=== PATIENT | female | born 1980 | race Caucasian/White ===

== ENCOUNTER → 2017-04-05 | Outpatient (CLI) | payer OTHER | END | disposition home or self-care (01) | LOC: C.PAPS 09:15 | PROVIDERS: ATTEND Physician Assistant | DX: Z01.419 Encounter for gynecological examination (general) (routine) without abnormal findings (principal) ==

== ENCOUNTER 2018-09-02 21:00 | Inpatient (IN) ==
[2018-09-02] MEDS ORDERED: OXYTOCIN 30 UNITS/500 ML BAG IV PRN (21:54)
--- NOTE | 2018-09-02 22:00 | History & Physical Report ---
Date of Service September 02, 2018 Assessment & Plan (1) Supervision of elderly primigravida in third trimester: - tracing Cat I - ctx's q5' on monitor - will ambulate and see if labor progresses - discussed possible need for pitocin if labor does not develop History of Present Illness Chief Complaint: leaking fluid Primary Care Provider: Suraj Leon The patient is a 38-year-old 1 para 0 with an EDC of 06 September by dates and first trimester ultrasound who presents to labor and delivery with leaking of fluid. Patient states she felt a pop and started leaking some fluid. She subsequently developed some contractions. The patient has had a benign course. Her blood type is A+, antibody negative, rubella immune, hepatitis B negative, she had a negative cell free DNA screen, negative maternal serum AFP, she had an elevated 1 hour Glucola 28 weeks with a normal 2-hour glucose tolerance test, and a negative third trimester beta strep culture Allergies Allergy/AdvReac Type Severity Reaction Status Date / Time No Known Allergies Allergy Unverified 09/02/18 21:18 Home Medications Home Medications Medication Instructions Recorded Confirmed Type PNV cmb#95-ferrous fumarate-FA 1 tab PO DAILY 09/02/18 09/02/18 History [] inositol-D chiro inositol 1 ea PO 09/02/18 History [Ovasitol] vitamin D3-folic acid 1 tab PO DAILY 09/02/18 09/02/18 History Patient History Medical History History of migraine headaches PCOS (polycystic ovarian syndrome) Surgical History History of ankle surgery Hx of tonsillectomy Social History Preferred Language: Beninese 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 Beliefs That Will Affect Care: None marital status: Current Living Situation: Spouse Other Information That Helps Us Care for You: No Feels Safe at Home: Yes Safety Concerns: Feels Safe At This Time Smoking Status: Current every day smoker Hx Alcohol Use: No Hx Substance Use: No Physical Exam Constitutional: WD/WN, vitals as above Respiratory: Auscultation: lungs clear to auscultation bilaterally Cardiovascular: RRR, no murmur, no edema Extremities: no calf tenderness Gastrointestinal (Abdomen): Gravid, vtx, (+) FHT's, mild palpable ctx's, EFW 7 1/2 LBS Genitourinary: Cervix: SSE- (+) pool, (+)NTZ, (+) fern, 1/50/-2, posterior soft Results & Data Vital Signs (Past 12 Hours) Vital Signs Temp Pulse Resp BP 09/02/18 21:20 37.0 C 96 H 18 134/79 09/02/18 21:11 37.0 C 96 H 18 134/79
[2018-09-02 22:10] LABS: Hematocrit (blood only) 32.1 % (37-47); Hemoglobin 10.4 g/dL (12.0-16.0); Mean Corpuscular Volume 85.4 fL (80-100); Mean Platelet Volume 10.6 fL (7.4-10.4); Platelet Count 337 K/uL (130-400); RDW Coefficient of Variation 13.5 % (11.5-14.5); Red Blood Count 3.76 M/uL (4.2-5.4); White Blood Count 10.14 K/uL (4.8-10.8)
[2018-09-02 22:12] LABS: Mean Corpuscular Hgb Conc 32.4 g/dL (32-36)
[2018-09-03] MEDS: LACTATED RINGER'S 1,000 ML IV PRN ×3 (03:13→15:01)
[2018-09-03] MEDS ORDERED: BUPIVACAINE 0.25% 30 ML VIAL ONE (06:44)
[2018-09-03] MEDS ORDERED: fentaNYL citrate 100 MCG/2 ML VIAL ONE (06:45)
[2018-09-03] MEDS ORDERED: ePHEDrine sulfate 50 MG/ML AMP ONE (06:45)
[2018-09-03] MEDS ORDERED: fentaNYL 2MCG/ML ROPIV 1.25MG/ML 100 ML BAG EPI ONE (06:45)
[2018-09-03] MEDS ORDERED: NALBUPHINE HCL INJ 10 MG/ML AMP IV PRN (07:32)
[2018-09-03] MEDS ORDERED: DiphenhydrAMINE HCL 50 MG/ML VIAL IV PRN (07:32)
[2018-09-03] MEDS ORDERED: NALOXONE HCL 0.4 MG/1 ML VIAL/CARP IV PRN (07:32)
[2018-09-03] MEDS ORDERED: ONDANSETRON INJ 2 MG/ML 2 ML VIAL IV PRN (07:32)
[2018-09-03] MEDS ORDERED: fentaNYL 2MCG/ML ROPIV 1.25MG/ML 100 ML BAG EPI PRN (07:32)
[2018-09-03] MEDS ORDERED: NALOXONE HCL 1 MG in SODIUM CHLORIDE 0.9% 1000ML 1,000 ML IV PRN (07:32)
[2018-09-03] MEDS ORDERED: ePHEDrine sulfate 50 MG/ML AMP IV PRN (07:32)
--- NOTE | 2018-09-03 07:38 | Anesthesiology Consultation ---
Date of Service September 03, 2018 Assessment & Plan Chart Review Chart Review: Patient NOT seen in Pre Admission Testing and Acceptable Risk for Labor Epidural Consults Requested none ASA ASA2 Proposed Anesthesia Anesthesia Type: Labor Epidural and CSE Risk / Benefits Reviewed With: PT / POA / Parent / Guardian, Accepts Plan and Informed Consent Obtained History Height/Weight Height: 5 ft 4 in Weight: 72.121 kg Allergies Allergy/AdvReac Type Severity Reaction Status Date / Time No Known Allergies Allergy Unverified 09/02/18 21:18 Medications Home Medications Medication Instructions Recorded Confirmed Last Taken PNV cmb#95-ferrous fumarate-FA 1 tab PO DAILY 09/02/18 09/02/18 09/02/18 [] inositol-D chiro inositol 1 ea PO 09/02/18 09/02/18 [Ovasitol] vitamin D3-folic acid 1 tab PO DAILY 09/02/18 09/02/18 09/02/18 Active Medications Generic Name Dose Route Start Last Admin Trade Name Freq PRN Reason Stop Dose Admin Lactated Ringer's 1,000 mls @ 125 mls/hr 09/02/18 21:53 09/03/18 07:21 Lr IV 09/04/18 21:52 125 mls/hr .Q8H PRN Administration L&D Protocol Protocol Oxytocin 30 units in 500 mls @ 9 mls/hr 09/02/18 21:54 09/03/18 07:02 Pitocin IV 09/04/18 21:53 0.54 units/hr .Q24H PRN 9 mls/hr Labor Induction/Augmentation Titration Protocol 0.54 UNITS/HR NPO Date Last Intake of Fluids: 09/03/18 Time Last Intake of Fluids: 07:00 Date Last Intake of Solids: 09/02/18 Time Last Intake of Solids: 19:30 Past Medical History Medical History History of migraine headaches PCOS (polycystic ovarian syndrome) Exercise / Class Metabolic Activity II 4-5 Yardwork/Stairs/Walk up hill Past Surgical History Surgical History History of ankle surgery Hx of tonsillectomy Past Anesthesia History No Hx of Anesthesia Complications, No Family Hx of Anesthesia Complications and Other (PONV) History of PONV History of PONV Social History Smoking Status: Current every day smoker Hx Alcohol Use: No Hx Substance Use: No Review of Systems no chest pain or sob Physical Exam Vital Signs Last Vital Signs Temp 37.0 C 09/03/18 05:07 Pulse 99 H 09/03/18 07:37 Resp 18 09/03/18 06:10 BP 128/74 09/03/18 07:08 Pulse Ox 99 09/03/18 07:37 ENMT Mouth: no TMJ abnormality Thyromental Distance: > or= 3.5 Finger Breadths Mallampati Class: II Neck normal visual inspection Respiratory normal respiratory effort Auscultation: lungs clear to auscultation bilaterally Cardiovascular Rate/Rhythm: regular rate and regular rhythm Musculoskeletal Spine: normal cervical ROM Neurologic moves all extremities Psychiatric Orientation: alert and oriented x 3 Testing Laboratory Results 09/02/18 22:00
--- NOTE | 2018-09-03 09:12 | Obstetrical Progress Note ---
Date of Service September 03, 2018 Subjective Labor note: Chart reviewed. Comfortable with epidural. FHT 140s mod camila. +accels. +occasional variable decels. [place] irreg, Q 2-5 min SVE 4-5/90/-1 Continue to monitor. Anticipate . Results & Data Vital Signs (Past 12 Hours) Vital Signs Temp Pulse Resp BP Pulse Ox 09/03/18 09:07 95 H 98 09/03/18 09:04 88 92/56 L 09/03/18 09:03 89 89/59 L 09/03/18 09:02 91 H 98 09/03/18 08:57 93 H 98 09/03/18 08:52 95 H 98 09/03/18 08:47 88 103/63 97 09/03/18 08:42 95 H 97 09/03/18 08:37 98 H 97 09/03/18 08:33 93 H 101/60 09/03/18 08:32 92 H 96 09/03/18 08:27 97 H 97 09/03/18 08:22 100 H 96 09/03/18 08:17 98 H 101/62 97 09/03/18 08:12 106 H 97 09/03/18 08:07 106 H 98 09/03/18 08:02 109 H 105/62 98 09/03/18 08:00 105 H 110/65 09/03/18 07:58 105 H 110/68 09/03/18 07:57 106 H 111/67 98 09/03/18 07:56 106 H 116/69 09/03/18 07:54 105 H 112/69 09/03/18 07:52 107 H 120/68 98 09/03/18 07:50 100 H 125/74 09/03/18 07:47 98 H 100 09/03/18 07:46 86 136/79 09/03/18 07:43 104 H 136/78 09/03/18 07:42 95 H 100 09/03/18 07:37 99 H 99 09/03/18 07:32 98 H 98 09/03/18 07:27 91 H 99 09/03/18 07:22 96 H 98 09/03/18 07:17 92 H 100 09/03/18 07:12 97 H 100 09/03/18 07:08 90 128/74 09/03/18 07:07 94 H 100 09/03/18 06:10 102 H 18 126/74 09/03/18 05:07 37.0 C 97 H 18 122/69 09/03/18 04:16 94 H 18 121/74 09/03/18 03:17 37.2 C 87 18 121/74 09/03/18 01:20 36.9 C 84 18 120/75 09/02/18 23:00 36.8 C 09/02/18 21:20 37.0 C 96 H 18 134/79 09/02/18 21:11 37.0 C 96 H 18 134/79
[2018-09-03] MEDS ORDERED: METHYLERGONOVINE MALEATE 0.2 MG/ML AMP ONE (16:04)
[2018-09-03] MEDS: OXYTOCIN 30 UNITS/500 ML BAG IV PRN ×2 (16:06→16:12)
[2018-09-03] MEDS ORDERED: CARBOPROST TROMETHAMINE 250 MCG/ML AMPUL ONE (16:07)
[2018-09-03] MEDS ORDERED: TRANEXAMIC ACID 100 MG/ML 10 ML VIAL ONE (16:14)
[2018-09-03] MEDS ORDERED: METHYLERGONOVINE MALEATE 0.2 MG/ML AMP IM PRN (16:21)
[2018-09-03] MEDS ORDERED: CARBOPROST TROMETHAMINE 250 MCG/ML AMPUL IM PRN (16:21)
[2018-09-03] MEDS ORDERED: TRANEXAMIC ACID 1,000 MG in 0.9 % SODIUM CHLORIDE 100 ML IV STA (16:25)
[2018-09-03] MEDS ORDERED: miSOPROStol 200 MCG TAB ONE (16:26)
--- NOTE | 2018-09-03 16:40 | Procedure Note ---
Vaginal Delivery Summary Date of Service September 03, 2018 Vaginal Delivery Summary Vaginal Delivery Summary: Pre-delivery diagnoses: 38yo @ 39 4/7, spontaneous labor, femara , advanced maternal age Post-delivery diagnoses: same + 3rd degree perineal laceration, hemorrhage Procedure: spontaneous vaginal delivery, repair of 3rd degree perineal laceration, insertion of bakri balloon Surgeon: Iesha Ramirez DO Complications: hemorrhage Findings: Viable female . Apgars: 8/9. Weight pending, please see nursery records Estimated blood loss: 1000ml at time of delivery Description of delivery: The patient progressed to complete with epidural anesthesia. She then began to push. She spontaneously vaginally delivered a viable from the cephalic presentation. The head delivered in DEMETRIO position. Nuchal cord x 2 easily reduced. The anterior shoulder delivered, followed by the posterior shoulder, followed by the body. The baby was placed on mother's abdomen and cord was doubly clamped and cut and baby was handed off to nursery team. By one minute, a spontaneous cry was heard. A segment was retained for cord gases, but this was leaking and unable to obtain gases. Cord blood was obtained. The placenta was delivered spontaneously intact with a 3- vessel cord. The uterus and vagina were swept of clots and debris. IV pitocin was given. The uterus became firm. The cervix, vagina, and perineum were inspected and 3rd degree perineal lacerations was noted and repaired in standard fashion. Patient then began to pass large clots - uterus swept again and multiple large clots extracted. The fundus was firm, but lower uterine segment was atonic. The bladder was drained with red rubber for approx 100cc. The cervix was evaluated, no active bleeding. IM methergine and hemabate were given. The uterus was gently curettaged with a sharp banjo curette for minimal tissue. A bakri balloon was placed into the uterus and inflated to 500cc fluid. Minimal output from bakri tubing. Rucker catheter was inserted. 1000mcg cytotec placed in rectum. Lab has been called stat to perform CBC, coags. Will transfuse 1u PRBC due to volume of blood loss now. The baby is recovering in stable and good condition in the room. Sponge, needle and instrument counts were correct x 2. Iesha Ramirez, FACOOG
[2018-09-03] MEDS ORDERED: SODIUM CHLORIDE 0.9% 250 ML IV PRN (16:41)
[2018-09-03 16:45] LABS: Hematocrit (blood only) 28.7 % (37-47); Hemoglobin 9.3 g/dL (12.0-16.0); Mean Corpuscular Volume 85.2 fL (80-100); Mean Platelet Volume 10.4 fL (7.4-10.4); Platelet Count 288 K/uL (130-400); RDW Coefficient of Variation 13.5 % (11.5-14.5); RDW Standard Deviation 41.7 fL (36.4-46.3); Red Blood Count 3.37 M/uL (4.2-5.4); White Blood Count 14.99 K/uL (4.8-10.8)
[2018-09-03] MEDS ORDERED: miSOPROStol 200 MCG TAB PR ONE (16:45)
--- NOTE | 2018-09-03 16:45 | Obstetrical Progress Note ---
Date of Service September 03, 2018 Subjective Patient is feeling weak, but BP stable. HR tachycardic at 112. Scant blood in bakri bag. I counseled patient on blood transfusion - she is agreeable. She consents to transfusion. Results & Data Vital Signs (Past 12 Hours) Vital Signs Temp Pulse Resp BP Pulse Ox 09/03/18 16:38 112 H 116/65 09/03/18 16:27 130 H 128/70 09/03/18 16:22 118 H 104/65 09/03/18 16:20 118 H 106/65 09/03/18 16:17 122 H 103/65 09/03/18 16:05 111 H 106/64 09/03/18 16:03 123 H 107/66 09/03/18 15:42 104 H 72 L 09/03/18 15:37 99 H 100 09/03/18 15:36 106 H 88 L 09/03/18 15:32 92 H 115/64 99 09/03/18 15:30 95 H 76 L 09/03/18 15:27 105 H 99 09/03/18 15:25 110 H 91 09/03/18 15:22 113 H 92 09/03/18 15:18 105 H 116/66 90 09/03/18 15:17 102 H 98 09/03/18 15:12 129 H 89 L 09/03/18 15:07 96 H 100 09/03/18 15:06 94 H 85 L 09/03/18 15:04 91 H 109/67 09/03/18 15:02 97 H 83 L 09/03/18 15:00 37.3 C 120 H 18 92 09/03/18 14:57 101 H 100 09/03/18 14:54 118 H 90 09/03/18 14:52 98 H 100 09/03/18 14:48 94 H 116/66 09/03/18 14:47 110 H 100 09/03/18 14:42 106 H 93 09/03/18 14:37 99 H 97 09/03/18 14:33 116 H 131/66 09/03/18 14:32 137 H 96 09/03/18 14:30 18 09/03/18 14:27 106 H 100 09/03/18 14:22 111 H 100 09/03/18 14:17 130 H 114/68 89 L 09/03/18 14:15 97 H 79 L 09/03/18 14:12 102 H 100 09/03/18 14:07 108 H 100 09/03/18 14:04 92 H 118/72 09/03/18 14:02 100 H 100 09/03/18 14:00 20 09/03/18 13:57 91 H 100 09/03/18 13:52 96 H 99 09/03/18 13:47 97 H 112/68 99 09/03/18 13:42 96 H 100 09/03/18 13:37 95 H 100 09/03/18 13:34 95 H 116/69 09/03/18 13:32 116 H 100 09/03/18 13:30 18 09/03/18 13:27 96 H 100 09/03/18 13:22 89 100 09/03/18 13:19 96 H 119/69 09/03/18 13:17 90 100 09/03/18 13:12 90 100 09/03/18 13:07 86 100 09/03/18 13:04 92 H 122/71 09/03/18 13:02 94 H 100 09/03/18 13:00 18 09/03/18 12:57 89 100 09/03/18 12:52 102 H 100 09/03/18 12:49 95 H 125/66 09/03/18 12:47 97 H 100 09/03/18 12:42 96 H 100 09/03/18 12:37 89 100 09/03/18 12:33 89 116/69 09/03/18 12:32 88 100 09/03/18 12:30 18 09/03/18 12:27 102 H 100 09/03/18 12:22 89 100 09/03/18 12:19 89 114/69 09/03/18 12:17 90 100 09/03/18 12:12 90 100 09/03/18 12:07 101 H 100 09/03/18 12:05 36.7 C 18 09/03/18 12:03 92 H 114/70 09/03/18 12:02 101 H 100 09/03/18 11:57 96 H 100 09/03/18 11:52 106 H 100 09/03/18 11:47 88 111/71 100 09/03/18 11:42 87 100 09/03/18 11:37 83 100 09/03/18 11:32 84 103/59 L 100 09/03/18 11:27 85 100 09/03/18 11:22 81 100 09/03/18 11:17 83 116/66 100 09/03/18 11:12 94 H 100 09/03/18 11:07 99 H 100 09/03/18 11:02 106 H 100/67 100 09/03/18 10:57 95 H 100 09/03/18 10:52 94 H 100 09/03/18 10:49 95 H 92/66 L 09/03/18 10:47 92 H 100 09/03/18 10:42 91 H 99 09/03/18 10:37 92 H 99 09/03/18 10:32 88 97/55 L 99 09/03/18 10:27 83 98 09/03/18 10:22 85 98 09/03/18 10:18 80 100/57 L 09/03/18 10:17 79 98 09/03/18 10:12 81 98 09/03/18 10:07 92 H 99 09/03/18 10:02 88 101/61 99 09/03/18 09:57 89 99 09/03/18 09:52 96 H 99 09/03/18 09:48 90 104/61 09/03/18 09:47 95 H 99 09/03/18 09:42 97 H 98 09/03/18 09:37 89 99 09/03/18 09:32 85 97/57 L 99 09/03/18 09:27 84 98 09/03/18 09:22 85 98 09/03/18 09:19 83 97/57 L 09/03/18 09:17 88 98 09/03/18 09:12 88 98 09/03/18 09:07 95 H 98 09/03/18 09:04 88 92/56 L 09/03/18 09:03 89 89/59 L 09/03/18 09:02 91 H 98 09/03/18 09:00 36.7 C 18 09/03/18 08:57 93 H 98 09/03/18 08:52 95 H 98 09/03/18 08:47 88 103/63 97 09/03/18 08:42 95 H 97 09/03/18 08:37 98 H 97 09/03/18 08:33 93 H 101/60 09/03/18 08:32 92 H 96 09/03/18 08:30 20 09/03/18 08:27 97 H 97 09/03/18 08:22 100 H 96 09/03/18 08:17 98 H 101/62 97 09/03/18 08:12 106 H 97 09/03/18 08:07 106 H 98 09/03/18 08:02 109 H 105/62 98 09/03/18 08:00 105 H 24 110/65 09/03/18 07:58 105 H 110/68 09/03/18 07:57 106 H 111/67 98 09/03/18 07:56 106 H 116/69 09/03/18 07:54 105 H 112/69 09/03/18 07:52 107 H 120/68 98 09/03/18 07:50 100 H 125/74 09/03/18 07:47 98 H 100 09/03/18 07:46 86 136/79 09/03/18 07:43 104 H 136/78 09/03/18 07:42 95 H 100 09/03/18 07:37 99 H 99 09/03/18 07:32 98 H 98 09/03/18 07:30 36.7 C 18 09/03/18 07:27 91 H 99 09/03/18 07:22 96 H 98 09/03/18 07:17 92 H 100 09/03/18 07:12 97 H 100 09/03/18 07:08 90 128/74 09/03/18 07:07 94 H 100 09/03/18 06:10 102 H 18 126/74 09/03/18 05:07 37.0 C 97 H 18 122/69
[2018-09-03] MEDS ORDERED: OXYTOCIN 20 UNITS in LACTATED RINGER'S 1,000 ML IV SCH ×2 (17:00→17:15)
[2018-09-03] MEDS ORDERED: METHYLERGONOVINE MALEATE 0.2 MG/ML AMP IM STA (17:05)
[2018-09-03 17:08] LABS: Mean Corpuscular Hgb Conc 32.4 g/dL (32-36)
[2018-09-03 17:19] LABS: Fibrinogen 432 mg/dl (184-400); INR 0.9 (0.9-1.1); Partial Thromboplastin Ratio 0.9; Partial Thromboplastin Time 25.1 Seconds (21.0-31.0); Prothrombin Time 9.7 Seconds (9.0-12.0)
[2018-09-03] MEDS ORDERED: SUPERCREAM 0.870% 15 GM JAR EXT PRN (18:16)
[2018-09-03] MEDS ORDERED: HYDROCORTISONE ACETATE 25 MG SUPP PR PRN (18:16)
[2018-09-03] MEDS ORDERED: OXYTOCIN 30 UNITS/500 ML BAG IV PRN (18:16)
[2018-09-03] MEDS ORDERED: BENZOCAINE 20% AER SPR 82.5 GM CAN EXT PRN (18:16)
[2018-09-03] MEDS ORDERED: DIPHTHERIA/TETANUS/PERTUSSIS 0.5 ML SYR/VIAL IM ONE (18:16)
[2018-09-03] MEDS ORDERED: ACETAMINOPHEN 325 MG TAB PO PRN (18:16)
[2018-09-03] MEDS ORDERED: BISACODYL 10 MG SUPP PR PRN (18:16)
[2018-09-03] MEDS ORDERED: OXYCODONE/ACETAMINOPHEN 5mg/325mg TAB ONE (18:27)
--- NOTE | 2018-09-03 18:34 | Anesthesia Procedure Note ---
Date of Service September 03, 2018 Anesthesia Post Epidural Note Vital Signs Vital Signs: Temp Pulse Resp BP Pulse Ox 37.4 C 99 H 20 110/67 72 L 09/03/18 18:12 09/03/18 18:23 09/03/18 18:12 09/03/18 18:23 09/03/18 15:42 Notes Mental Status: alert / awake / arousable and participated in evaluation Nausea / Vomiting: adequately controlled Pain: adequately controlled Airway Patency, RR, SpO2: stable & adequate BP & HR: stable & adequate Hydration State: stable & adequate Neuraxial Anesthesia: was administered and sensory block is resolving Anesthetic Complications: no major complications apparent and Pt Satisfied with anesthetic care Epidural: Removed without complications and With tip intact
--- NOTE | 2018-09-03 20:03 | Obstetrical Progress Note ---
Date of Service September 03, 2018 Subjective Patient is feeling better - is in room. She is hungry and looking forward to eating. Vitals stable. 1u PRBC is completed transfusion, and lab will be up to recheck H/H. Urine output 125cc since delivery. Approx 150cc blood in bakri balloon bag since delivery. Patient appears stable. Will await H/H result, and if stable, will be ok to eat. Results & Data Vital Signs (Past 12 Hours) Vital Signs Temp Pulse Resp BP Pulse Ox 09/03/18 19:53 93 H 102/60 09/03/18 19:38 90 105/60 09/03/18 19:23 90 114/68 09/03/18 19:08 93 H 106/67 09/03/18 18:53 107 H 109/60 09/03/18 18:44 95 H 107/59 L 09/03/18 18:42 37.5 C 95 H 18 107/59 L 09/03/18 18:38 103 H 106/57 L 09/03/18 18:23 99 H 110/67 09/03/18 18:12 37.4 C 105 H 20 104/64 09/03/18 18:08 105 H 104/64 09/03/18 17:57 36.4 C L 125 H 22 104/68 09/03/18 17:53 125 H 104/68 09/03/18 17:39 37.2 C 121 H 18 112/56 L 09/03/18 17:38 121 H 112/56 L 09/03/18 17:23 131 H 98/62 L 09/03/18 17:08 121 H 22 111/70 09/03/18 16:53 111 H 114/68 09/03/18 16:50 110 H 114/66 09/03/18 16:38 112 H 116/65 09/03/18 16:27 130 H 128/70 09/03/18 16:22 118 H 104/65 09/03/18 16:20 118 H 106/65 09/03/18 16:17 122 H 103/65 09/03/18 16:05 111 H 106/64 09/03/18 16:03 123 H 107/66 09/03/18 15:42 104 H 72 L 09/03/18 15:37 99 H 100 09/03/18 15:36 106 H 88 L 09/03/18 15:32 92 H 115/64 99 09/03/18 15:30 95 H 76 L 09/03/18 15:27 105 H 99 09/03/18 15:25 110 H 91 09/03/18 15:22 113 H 92 09/03/18 15:18 105 H 116/66 90 09/03/18 15:17 102 H 98 09/03/18 15:12 129 H 89 L 09/03/18 15:07 96 H 100 09/03/18 15:06 94 H 85 L 09/03/18 15:04 91 H 109/67 09/03/18 15:02 97 H 83 L 09/03/18 15:00 37.3 C 120 H 18 92 09/03/18 14:57 101 H 100 09/03/18 14:54 118 H 90 09/03/18 14:52 98 H 100 09/03/18 14:48 94 H 116/66 09/03/18 14:47 110 H 100 09/03/18 14:42 106 H 93 09/03/18 14:37 99 H 97 09/03/18 14:33 116 H 131/66 09/03/18 14:32 137 H 96 09/03/18 14:30 18 09/03/18 14:27 106 H 100 09/03/18 14:22 111 H 100 09/03/18 14:17 130 H 114/68 89 L 09/03/18 14:15 97 H 79 L 09/03/18 14:12 102 H 100 09/03/18 14:07 108 H 100 09/03/18 14:04 92 H 118/72 09/03/18 14:02 100 H 100 09/03/18 14:00 20 09/03/18 13:57 91 H 100 09/03/18 13:52 96 H 99 09/03/18 13:47 97 H 112/68 99 09/03/18 13:42 96 H 100 09/03/18 13:37 95 H 100 09/03/18 13:34 95 H 116/69 09/03/18 13:32 116 H 100 09/03/18 13:30 18 09/03/18 13:27 96 H 100 09/03/18 13:22 89 100 09/03/18 13:19 96 H 119/69 09/03/18 13:17 90 100 09/03/18 13:12 90 100 09/03/18 13:07 86 100 09/03/18 13:04 92 H 122/71 09/03/18 13:02 94 H 100 09/03/18 13:00 18 09/03/18 12:57 89 100 09/03/18 12:52 102 H 100 09/03/18 12:49 95 H 125/66 09/03/18 12:47 97 H 100 09/03/18 12:42 96 H 100 09/03/18 12:37 89 100 09/03/18 12:33 89 116/69 09/03/18 12:32 88 100 09/03/18 12:30 18 09/03/18 12:27 102 H 100 09/03/18 12:22 89 100 09/03/18 12:19 89 114/69 09/03/18 12:17 90 100 09/03/18 12:12 90 100 09/03/18 12:07 101 H 100 09/03/18 12:05 36.7 C 18 09/03/18 12:03 92 H 114/70 09/03/18 12:02 101 H 100 09/03/18 11:57 96 H 100 09/03/18 11:52 106 H 100 09/03/18 11:47 88 111/71 100 09/03/18 11:42 87 100 09/03/18 11:37 83 100 09/03/18 11:32 84 103/59 L 100 09/03/18 11:27 85 100 09/03/18 11:22 81 100 09/03/18 11:17 83 116/66 100 09/03/18 11:12 94 H 100 09/03/18 11:07 99 H 100 09/03/18 11:02 106 H 100/67 100 09/03/18 10:57 95 H 100 09/03/18 10:52 94 H 100 09/03/18 10:49 95 H 92/66 L 09/03/18 10:47 92 H 100 09/03/18 10:42 91 H 99 09/03/18 10:37 92 H 99 09/03/18 10:32 88 97/55 L 99 09/03/18 10:27 83 98 09/03/18 10:22 85 98 09/03/18 10:18 80 100/57 L 09/03/18 10:17 79 98 09/03/18 10:12 81 98 09/03/18 10:07 92 H 99 09/03/18 10:02 88 101/61 99 09/03/18 09:57 89 99 09/03/18 09:52 96 H 99 09/03/18 09:48 90 104/61 09/03/18 09:47 95 H 99 09/03/18 09:42 97 H 98 09/03/18 09:37 89 99 09/03/18 09:32 85 97/57 L 99 09/03/18 09:27 84 98 09/03/18 09:22 85 98 09/03/18 09:19 83 97/57 L 09/03/18 09:17 88 98 09/03/18 09:12 88 98 09/03/18 09:07 95 H 98 09/03/18 09:04 88 92/56 L 09/03/18 09:03 89 89/59 L 09/03/18 09:02 91 H 98 09/03/18 09:00 36.7 C 18 09/03/18 08:57 93 H 98 09/03/18 08:52 95 H 98 09/03/18 08:47 88 103/63 97 09/03/18 08:42 95 H 97 09/03/18 08:37 98 H 97 09/03/18 08:33 93 H 101/60 09/03/18 08:32 92 H 96 09/03/18 08:30 20 09/03/18 08:27 97 H 97 09/03/18 08:22 100 H 96 09/03/18 08:17 98 H 101/62 97 09/03/18 08:12 106 H 97 09/03/18 08:07 106 H 98 09/03/18 08:02 109 H 105/62 98 09/03/18 08:00 105 H 24 110/65
[2018-09-03 20:32] LABS: Hematocrit (blood only) 30.1 % (37-47)
[2018-09-03] MEDS: IBUPROFEN 600 MG TAB PO PRN (21:30)
[2018-09-03] MEDS: DOCUSATE SODIUM 100 MG CAP PO SCH (21:45)
[2018-09-04] MEDS: IBUPROFEN 600 MG TAB PO PRN ×4 (01:08→18:10)
[2018-09-04] MEDS ORDERED: LACTATED RINGER'S 1,000 ML IV SCH (04:00)
[2018-09-04 06:42] LABS: Hematocrit (blood only) 24.8 % (37-47); Hemoglobin 8.3 g/dL (12.0-16.0); Mean Corpuscular Hgb Conc 33.5 g/dL (32-36); Mean Corpuscular Volume 84.9 fL (80-100); Mean Platelet Volume 10.4 fL (7.4-10.4); Platelet Count 242 K/uL (130-400); RDW Coefficient of Variation 13.6 % (11.5-14.5); RDW Standard Deviation 41.9 fL (36.4-46.3); Red Blood Count 2.92 M/uL (4.2-5.4); White Blood Count 20.18 K/uL (4.8-10.8)
[2018-09-04] MEDS: OXYCODONE/ACETAMINOPHEN 5mg/325mg TAB PO PRN ×3 (06:47→20:16)
--- NOTE | 2018-09-04 07:20 | Obstetrical Progress Note ---
Date of Service September 04, 2018 Assessment & Plan (1) Vaginal delivery: PPD#1 doing well. Vitals stable, no bleeding through Bakri balloon bag or at perineum. Hgb 8.3 this AM. She is s/p 1u PRBC. Another H/H is ordered for noon today. 150cc fluid removed from Bakri balloon at 0715. Plan to monitor for approx 45 minutes, if no further bleeding, will remove the remainder of fluid, remove Bakri, and remove jamil catheter. (2) hemorrhage: Subjective Ambulation: limited ambulation (due to bakri) Voiding: jamil catheter in place (good output) Diet Tolerance:: regular diet Lochia:: Small Feeding Type:: breast feeding PPD#1 s/p and hemorrhage. Doing well. Bakri balloon still in place - scant output through Bakri bag overnight, no bleeding at perineum. No more feelings of weakness/dizziness, but is very uncomfortable with the Bakri and is looking forward to it coming out. Physical Exam Constitutional WD/WN, vitals as above no acute distress Respiratory normal respiratory effort Cardiovascular Rate/Rhythm: regular rate and regular rhythm Gastrointestinal (Abdomen) Inspection/Auscultation: abdomen normal to inspection; abdomen not distended Percussion/Palpation: abdomen soft Genitourinary OB Exam Abdomen: + fundal height Fundus: + firm and + relation to umbilicus (at umbilicus); not tender No blood on suraj pad Results & Data Vital Signs (Past 12 Hours) Vital Signs Temp Pulse Resp BP 09/04/18 07:02 102 H 100/57 L 09/04/18 06:01 93 H 98/59 L 09/04/18 05:02 106 H 103/55 L 09/04/18 04:02 106 H 95/54 L 09/04/18 03:53 37.1 C 18 09/04/18 03:01 96 H 99/56 L 09/04/18 02:01 113 H 111/85 09/04/18 01:01 99 H 108/57 L 09/04/18 00:01 100 H 118/63 09/03/18 23:01 36.8 C 110 H 18 106/55 L 09/03/18 22:02 101 H 107/50 L 09/03/18 21:02 36.9 C 105 H 18 120/61 09/03/18 20:01 90 108/63 09/03/18 19:53 93 H 102/60 09/03/18 19:38 90 105/60 09/03/18 19:23 90 114/68 09/03/18 19:20 36.8 C 90 18 114/68
--- NOTE | 2018-09-04 08:08 | Obstetrical Progress Note ---
Date of Service September 04, 2018 Subjective Remainder of bakri fluid removed and Bakri balloon removed. Scant blood. Fundus firm. Vitals stable. Will check H/H at noon today. Patient is feeling well. OK for removal of jamil, and when she is feeling up to it, ambulation. Results & Data Vital Signs (Past 12 Hours) Vital Signs Temp Pulse Resp BP 09/04/18 08:01 95 H 97/56 L 09/04/18 08:00 100 H 101/55 L 09/04/18 07:42 103 H 96/59 L 09/04/18 07:02 102 H 100/57 L 09/04/18 06:01 93 H 98/59 L 09/04/18 05:02 106 H 103/55 L 09/04/18 04:02 106 H 95/54 L 09/04/18 03:53 37.1 C 18 09/04/18 03:01 96 H 99/56 L 09/04/18 02:01 113 H 111/85 09/04/18 01:01 99 H 108/57 L 09/04/18 00:01 100 H 118/63 09/03/18 23:01 36.8 C 110 H 18 106/55 L 09/03/18 22:02 101 H 107/50 L 09/03/18 21:02 36.9 C 105 H 18 120/61
[2018-09-04] MEDS: PRENATAL VITAMIN 1 TAB PO SCH (10:29)
[2018-09-04] MEDS: DOCUSATE SODIUM 100 MG CAP PO SCH ×2 (10:29→20:16)
[2018-09-04 12:21] LABS: Hemoglobin 8.8 g/dL (12.0-16.0)
[2018-09-04] MEDS ORDERED: BISACODYL 5 MG TABEC PO SCH (20:00)
[2018-09-05] MEDS: OXYCODONE/ACETAMINOPHEN 5mg/325mg TAB PO PRN ×3 (00:17→07:57)
[2018-09-05] MEDS: IBUPROFEN 600 MG TAB PO PRN ×3 (01:43→12:52)
--- NOTE | 2018-09-05 07:38 | Obstetrical Progress Note ---
Date of Service September 05, 2018 Assessment & Plan (1) Vaginal delivery: (2) hemorrhage: doing well, last hgb noted. instructions reviewed. d/c home, f/u 6 wk pp check. reviewed iron. Day #:: 2 Subjective Ambulation: ambulating normally Voiding: no voiding problems Diet Tolerance:: regular diet Lochia:: Small Feeding Type:: breast feeding no dizziness/lightheadedness, no pain issues, ready to go home Physical Exam Constitutional WD/WN, vitals as above Respiratory normal respiratory effort, lungs clear to auscultation Cardiovascular Rate/Rhythm: regular rate and regular rhythm Gastrointestinal (Abdomen) Inspection/Auscultation: abdomen normal to inspection Percussion/Palpation: abdomen soft fundus firm 2 cm below umbilicus Musculoskeletal nt calves Psychiatric A+Ox3, euthymic affect Results & Data Vital Signs (Past 12 Hours) Vital Signs Temp Pulse Resp BP Pulse Ox 09/05/18 03:45 36.8 C 90 16 102/67 98 09/05/18 00:15 36.8 C 98 H 16 97/59 L 99 09/04/18 20:30 36.8 C 102 H 18 99/63 L 98
[2018-09-05] MEDS: DOCUSATE SODIUM 100 MG CAP PO SCH (07:56)
[2018-09-05] MEDS: PRENATAL VITAMIN 1 TAB PO SCH (07:56)
== END 2018-09-05 13:45 | disposition home or self-care (01) | DRG 768 ==
LOC: OPB 21:00 → 4S1 21:01 → 4S2 09-04 10:53

== ENCOUNTER 2020-12-23 07:38 | Inpatient (IN) ==
[2020-12-23] MEDS ORDERED: OXYTOCIN 30 UNITS/500 ML BAG IV PRN ×3 (08:31→17:03)
[2020-12-23] MEDS ORDERED: PENICILLIN G POTASSIUM 6 MU in DEXTROSE 5% 250 ML IV ONE (08:45)
[2020-12-23] MEDS: LACTATED RINGER'S 1,000 ML IV PRN ×2 (08:46→12:59)
[2020-12-23 09:05] LABS: Mean Corpuscular Hemoglobin 30.2 pg (25-34); Mean Corpuscular Hgb Conc 32.4 g/dL (32-36); Mean Corpuscular Volume 93.4 fL (80-100); Mean Platelet Volume 10.4 fL (7.4-10.4); Platelet Count 420 K/uL (130-400); RDW Coefficient of Variation 13.7 % (11.5-14.5); Red Blood Count 3.64 M/uL (4.2-5.4); White Blood Count 10.55 K/uL (4.8-10.8)
[2020-12-23] MEDS ORDERED: PENICILLIN G POTASSIUM 3 MU in DEXTROSE 5% 100 ML IV PRN (11:31)
[2020-12-23] MEDS ORDERED: ePHEDrine sulfate 50 MG/ML AMP ONE (12:15)
[2020-12-23] MEDS ORDERED: fentaNYL citrate 100 MCG/2 ML VIAL ONE (12:15)
[2020-12-23] MEDS ORDERED: fentaNYL 2MCG/ML ROPIVACAINE 1.25MG/ML 100 ML BAG EPI ONE (12:15)
[2020-12-23] MEDS ORDERED: BUPIVACAINE 0.25% 30 ML VIAL ONE (12:15)
[2020-12-23] MEDS ORDERED: SODIUM CHLORIDE 0.9% INJ 10 ML VIAL ONE (12:15)
--- NOTE | 2020-12-23 12:26 | Anesthesiology Consultation ---
Date of Service December 23, 2020 Assessment & Plan (1) Encounter for pre-operative examination: Chart Review Chart Review: Acceptable Risk for Surgery and Patient NOT seen in Pre Admission Testing Consults Requested none History Height/Weight Height: 5 ft 4 in Weight: 73.028 kg Allergies Allergy/AdvReac Type Severity Reaction Status Date / Time No Known Allergies Allergy Verified 12/23/20 08:36 Medications Home Medications Medication Instructions Recorded Confirmed Last Taken prenat.vits,imchelle,gfl-alow-dymnm 1 tab PO DAILY 10/03/18 12/23/20 12/05/20 07:30 Active Medications Generic Name Dose Route Start Last Admin Trade Name Freq PRN Reason Stop Dose Admin Lactated Ringer's 1,000 mls @ 125 mls/hr 12/23/20 08:31 12/23/20 12:18 Lr IV 12/25/20 08:30 999 mls/hr .Q8H PRN Infusion L&D Protocol Protocol Oxytocin 30 units in 500 mls @ 10 mls/hr 12/23/20 08:42 12/23/20 11:50 Pitocin IV 12/25/20 08:41 0.6 units/hr .Q24H PRN 10 mls/hr Labor Induction/Augmentation Titration Protocol 0.6 UNITS/HR Past Medical History Medical History History of migraine headaches History of varicella PCOS (polycystic ovarian syndrome) Past Family History Family History Grandmother (Maternal) Diabetes Father Hypertension Mother Breast cancer Lung cancer Denies family history of Ovarian cancer Colorectal cancer Uterine cancer Past Surgical History Surgical History H/O local excision of skin lesion History of ankle surgery Hx of tonsillectomy Social History Smoking Status: Never smoker Hx Alcohol Use: No Hx Substance Use: No substance use type: does not use Physical Exam Vital Signs Last Vital Signs Temp 97.7 F 12/23/20 11:17 Pulse 85 12/23/20 12:19 Resp 20 12/23/20 11:17 BP 114/71 12/23/20 11:17 Pulse Ox 98 12/23/20 12:19 Testing Laboratory Results 12/23/20 08:56 Blood Type A Positive 12/23/20 08:56 Antibody Screen NEGATIVE 12/23/20 08:56
[2020-12-23] MEDS ORDERED: diphenhydrAMINE 50 MG/ML VIAL IV PRN (12:35)
[2020-12-23] MEDS ORDERED: NALOXONE HCL 1 MG in SODIUM CHLORIDE 0.9% 1000ML 1,000 ML IV PRN (12:35)
[2020-12-23] MEDS ORDERED: fentaNYL 2MCG/ML ROPIVACAINE 1.25MG/ML 100 ML BAG EPI PRN (12:35)
[2020-12-23] MEDS ORDERED: NALOXONE HCL 0.4 MG/1 ML VIAL/CARP IV PRN (12:35)
[2020-12-23] MEDS ORDERED: NALBUPHINE HCL INJ 10 MG/ML AMP IV PRN (12:35)
[2020-12-23] MEDS ORDERED: ePHEDrine sulfate 50 MG/ML AMP IV PRN (12:35)
--- NOTE | 2020-12-23 16:40 | Delivery Summary ---
Vaginal Delivery Summary Date of Service December 23, 2020 Vaginal Delivery Summary and 2nd Degree LAC Patient induced at 40 weeks and 1 day 1 prior delivery initially was 3 to 4 cm Pitocin was started patient requested epidural IV antibiotics started for group B strep and the patient was Covid negative after epidural artificial rupture of membranes for clear fluid after that she rapidly progressed to fully dilated she pushed delivering a baby in occiput anterior position once the head was delivered mouth and nares suctioned initially at difficulty accessing the anterior shoulder area so we had the patient not push at this stage a combination of lowering the patient's head bringing the legs back in Joao maneuver and then suprapubic pressure allowed me to access the posterior shoulder I was able to rotate this just enough to then allow room to and accessed the anterior shoulder gentle traction at the posterior fold of the latissimus dorsi as well combined with internal efforts allowed easy delivery of the child at this stage no excessive force used live vigorous male there was a loose nuchal cord was passed over the baby's head cord clamped and cut cord gases obtained cord blood obtained placenta removed with gentle traction IV Pitocin started Second-degree tear repaired with 3-0 Vicryl sponge and instrument counts correct estimated blood loss 200 mL rectal exam negative for sutures or defects [facility] Vaginal Delivery Charge Delivery Type Details: and 2nd Degree LAC
[2020-12-23] MEDS ORDERED: BENZOCAINE 20% AER SPR 82.5 GM CAN EXT PRN (17:03)
[2020-12-23] MEDS ORDERED: oxyCODONE/ACETAMINOPHEN 5mg/325mg TAB PO PRN (17:03)
[2020-12-23] MEDS ORDERED: SUPERCREAM 0.870% 15 GM JAR EXT PRN (17:03)
[2020-12-23] MEDS ORDERED: HYDROCORTISONE ACETATE 25 MG SUPP PR PRN (17:03)
[2020-12-23] MEDS ORDERED: DIPHTHERIA/TETANUS/PERTUSSIS 0.5 ML SYR/VIAL IM ONE (17:03)
[2020-12-23] MEDS ORDERED: ACETAMINOPHEN 325 MG TAB PO PRN (17:03)
[2020-12-23 17:13] LABS: Base Excess Cord Venous Blood -1.7 mEq/L (-7.7-1.9); Cord Venous Blood HCO3 24 mmol/L (18.4-26.8); Cord Venous Blood PCO2 42 mmHg (30.4-57.2); Cord Venous Blood PO2 32 mmHg (14.1-43.3); Cord Venous Blood pH 7.37 (7.20-7.44)
[2020-12-23 17:29] LABS: Base Excess Cord Arterial Bld -1.2 mEq/L (-9-1.8); CO2 Cord Arterial Blood 39 mmHg (39.1-73.5); HCO3 Cord Arterial Blood 23 mmol/L (19.7-28.5); PO2 Cord Arterial Blood 29 mmHg (4.1-31.7)
--- NOTE | 2020-12-23 19:09 | Anesthesia Procedure Note ---
Date of Service December 23, 2020 Anesthesia Post Epidural Note Vital Signs Vital Signs: Temp Pulse Resp BP Pulse Ox 98.6 F 105 H 20 126/76 98 12/23/20 15:41 12/23/20 18:56 12/23/20 15:41 12/23/20 18:56 12/23/20 16:39 Pain Intensity Bilateral Lower Abdomen: Pain Intensity: 4 Notes Mental Status: alert / awake / arousable and participated in evaluation Nausea / Vomiting: adequately controlled Pain: adequately controlled Airway Patency, RR, SpO2: stable & adequate BP & HR: stable & adequate Hydration State: stable & adequate Neuraxial Anesthesia: was administered and sensory block is resolving Anesthetic Complications: no major complications apparent and Pt Satisfied with anesthetic care Epidural: Removed without complications and With tip intact
[2020-12-23] MEDS: IBUPROFEN 600 MG TAB PO PRN ×2 (19:27→23:28)
[2020-12-23] MEDS ORDERED: DOCUSATE SODIUM 100 MG CAP PO SCH (21:00)
[2020-12-24] MEDS: IBUPROFEN 600 MG TAB PO PRN ×3 (03:41→12:13)
[2020-12-24 06:02] LABS: Hematocrit (blood only) 33.2 % (37-47); Hemoglobin 10.6 g/dL (12.0-16.0); Mean Corpuscular Hemoglobin 29.9 pg (25-34); Mean Corpuscular Hgb Conc 31.9 g/dL (32-36); Mean Corpuscular Volume 93.5 fL (80-100); Mean Platelet Volume 10.7 fL (7.4-10.4); Platelet Count 384 K/uL (130-400); RDW Coefficient of Variation 13.7 % (11.5-14.5); RDW Standard Deviation 46.8 fL (36.4-46.3); Red Blood Count 3.55 M/uL (4.2-5.4); White Blood Count 15.13 K/uL (4.8-10.8)
--- NOTE | 2020-12-24 06:42 | Obstetrical Progress Note ---
Date of Service <Odilia Kuhn - Last Filed: 12/24/20 07:02> December 24, 2020 Assessment & Plan <Odilia Kuhn - Last Filed: 12/24/20 07:02> (1) Encounter for care and examination after delivery: 40 yo day1 from [facility] , doing well. -Continue routine post care. -vital signs reviewed and WNL (Tmax 36.8) -Blood Type A+, GBS+, Rubella Immune -Encourage ambulation, monitor and control pain with Motrin, tylenol PRN, resume regular diet, monitor lochia -encourage breast feeding -hemoglobin 10.6 -is comfortable with d/c post circumcision Day #:: 1 <Song Fam MD, FACOG - Last Filed: 12/24/20 07:14> (1) Encounter for care and examination after delivery: Subjective <Odilia Kuhn - Last Filed: 12/24/20 07:02> Ambulation: ambulating normally Voiding: no voiding problems and no incontinence Passing Gas:: Yes Diet Tolerance:: regular diet Lochia:: Small Feeding Type:: breast feeding Current Pain Level(1-10): 7 (at worst) Review of Systems Denies fever, chills, sweats Denies shortness of breath, difficulty breathing, chest pain, palpitations, chest pressure. Denies breast pain. Denies dysuria. Denies headache or changes in vision. Physical Exam <Odilia Kuhn - Last Filed: 12/24/20 07:02> General: Alert, oriented. No acute distress. Cardiac: Regular rate and rhythm, no murmurs/rubs/gallops. Respiratory: Clear to auscultation bilaterally a/p, no wheezes/rales/rhonchi. No increased work of breathing. Symmetrical chest rise. No respiratory distress. Abdomen: Soft, nontender, nondistended. Bowel sounds present. Uterus: Uterine fundus firm, palpable 1 cm below umbilicus. Lower Extremities: No lower extremity edema or swelling. No deep calf pain. Jacob's negative bilaterally.. Results & Data ([facility]) <Odilia BamDO - Last Filed: 12/24/20 07:02> Vital Signs (Past 12 Hours) Vital Signs Temp Pulse Pulse Resp BP BP Pulse Ox 10/29/21 03:35 36.8 C 96 H 16 106/69 97 12/23/20 23:10 36.8 C 98 H 18 107/70 97 12/23/20 18:56 105 H 126/76 <Song Fam MD, FACOG - Last Filed: 12/24/20 07:14> Co-Signing Physician Notes Resident Physician Supervision Note: I was present with Dr. Kuhn during the history and exam. I discussed the case with the resident and agree with the findings and plan as documented in the note. Any exceptions or clarifications are listed here: [None] Documented By: Song Fam MD, FACOG Resident Activity Tracking <Odilia Kuhn DO - Last Filed: 12/24/20 07:02> Resident Involvement: Resident Care Provided Care Provided: OB Delivery
[2020-12-24] MEDS ORDERED: PRENATAL VITAMIN 1 TAB PO SCH (08:00)
[2020-12-24] MEDS ORDERED: NON-FORMULARY MEDICATION (Prenat.Vits,Cal,Min-Iron-Folic tablet) PO SCH (09:00)
[2020-12-24] MEDS ORDERED: bisacodyL 5 MG TABEC PO SCH (20:00)
[2020-12-25] MEDS ORDERED: bisacodyL 10 MG SUPP PR PRN (06:00)
== END 2020-12-24 18:25 | disposition home or self-care (01) | DRG 807 ==
LOC: 4S1 07:38 → 4S2 19:45